=== PATIENT | female | born 1980 | race African-American/Black ===

== ENCOUNTER 2016-05-29 19:41 | Emergency (ER) | payer BC, OTHER ==
[~2016-05-29] VITALS: Ht 152.4 cm; Wt 54.4 kg
--- NOTE | ~2016-05-29 | EKG ---
[address] [address] [place] [address] ELECTROCARDIOGRAM REPORT Name: KENAN DOE Room #: DEP Yudy#: [id number] Admission: 05/29/16 Attend Phys: Discharge: 05/29/16 Date of : 78 Report #: [id number] THIS REPORT FOR: //name// [facility] ED Test Date: 2016-05-29 Test Time: 19:49:03 Pat Name: KENAN DOE Department: Room: Gender: F Site Controller: justino faustin rn : 1980 Requested By: Oswald Emanuel Order Number: [id number] MD: Smith Cordon Measurements Intervals [place] Rate: 88 P: 56 NC: 160 QRS: 11 QRSD: 70 T: 61 QT: 336 QTc: 407 Interpretive Statements Sinus rhythm RSR' in V1 or V2, probably normal variant No previous ECG available for comparison Electronically Signed On 05-30-2016 9:29:09 TALENT COORDINATOR by Smith Cordon [email or web address] <ELECTRONICALLY SIGNED> By: Smith Cordon MD, [facility] 05/30/16 0929 1949 48 Smith Cordon MD, FACC /EPI
[2016-05-29 20:18] LABS: ABSOLUTE NEUTROPHILS 3.3 thou/uL (1.4-8.2); BASOPHILS 1.8 % (0.0-2.0); EOSINOPHILS 0.8 % (0.0-3.0); HEMOGLOBIN 13.6 gm/dL (12.0-15.0); LYMPHOCYTES 52.2 % (24.0-44.0); MCH 30.8 pg (26.0-34.0); MCHC 33.2 % (28.0-37.0); MCV 92.8 fL (80.0-100.0); MONOCYTES 6.7 % (1.0-8.0); PLATELET COUNT 278 thou/uL (150-400); POLYS 38.5 % (36.0-66.0); RBC 4.42 mil/uL (4.20-5.00); RDW 14.3 % (10.5-14.5); WBC 8.6 thou/uL (4.0-11.0)
[2016-05-29 20:20] LABS: MANUAL DIFF NO
[2016-05-29 20:29] LABS: ANION GAP 10 mmol/L (7-16); BUN 12 mg/dL (7-18); CALCIUM 9.2 mg/dL (8.5-10.1); CHLORIDE 104 mmol/L (98-107); CO2 25 mmol/L (21-32); CREATININE 0.9 mg/dL (0.6-1.3); GLUCOSE 106 mg/dL (70-99); POTASSIUM 3.5 mmol/L (3.5-5.1); SODIUM 139 mmol/L (136-145)
[2016-05-29 20:38] LABS: TROPONIN-I < 0.04 ng/mL (<0.04-0.07)
[2016-05-29] MEDS ORDERED: IBUPROFEN 600600 M1 PO (20:52)
[2016-05-29 21:58] VITALS: BP 104/75
[2016-06-06] MEDS ORDERED: NAPROSYN500 MG PO (10:58)
== END 2016-05-29 21:59 | disposition home or self-care (01) ==
LOC: ER 19:41
PROVIDERS: Physician Assistant
DX: M94.0 Chondrocostal junction syndrome [Tietze] (principal); F17.210 Nicotine dependence, cigarettes, uncomplicated

== ENCOUNTER 2017-02-04 11:28 | Emergency (ER) | payer BC, OTHER ==
[~2017-02-04] VITALS: Ht 152.4 cm; Wt 54.4 kg
--- NOTE | ~2017-02-04 | EKG ---
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
[~2017-02-04 11:28] MED LIST: IBUPROFEN 600600 M1 PO; NAPROSYN500 MG PO
[2017-02-04 12:34] LABS: ABSOLUTE NEUTROPHILS 3.7 thou/uL (1.4-8.2); BASOPHILS 1.2 % (0.0-2.0); EOSINOPHILS 0.6 % (0.0-3.0); HEMATOCRIT 41.9 % (37.0-47.0); LYMPHOCYTES 40.1 % (24.0-44.0); MCH 31.4 pg (26.0-34.0); MCHC 33.5 g/dL (28.0-37.0); MCV 93.6 fL (80.0-100.0); MONOCYTES 8.6 % (1.0-8.0); PLATELET COUNT 254 thou/uL (150-400); POLYS 49.5 % (36.0-66.0); RBC 4.47 mil/uL (4.20-5.00); WBC 7.4 thou/uL (4.0-11.0)
[2017-02-04 12:35] LABS: MANUAL DIFF NO
[2017-02-04 12:46] LABS: ANION GAP 8 mmol/L (7-16); BUN 6 mg/dL (7-18); CALCIUM 9.2 mg/dL (8.5-10.1); CHLORIDE 107 mmol/L (98-107); CO2 25 mmol/L (21-32); CREATININE 0.8 mg/dL (0.6-1.0); GLUCOSE 84 mg/dL (74-106); POTASSIUM 3.8 mmol/L (3.5-5.1); SODIUM 140 mmol/L (136-145)
[2017-02-04 12:55] LABS: TROPONIN-I < 0.04 ng/mL (<0.04-0.07)
[2017-02-04] MEDS ORDERED: ZOFRAN ODT4 MG PO (13:39)
[2017-02-04] MEDS ORDERED: PROTONIX40 MG PO (13:39)
[2017-02-04] MEDS ORDERED: PHENERGAN 25 MG25 M1 PO (13:39)
[2017-02-04 13:48] VITALS: BP 99/66
== END 2017-02-04 13:49 | disposition home or self-care (01) ==
LOC: ER 11:28
PROVIDERS: Emergency Medicine
DX: R07.89 Other chest pain (principal); K21.9 Gastro-esophageal reflux disease without esophagitis; J45.909 Unspecified asthma, uncomplicated; F17.210 Nicotine dependence, cigarettes, uncomplicated